=== PATIENT | female | born 1995 | race Two or more races ===

== ENCOUNTER 2017-04-30 07:56 | Emergency (ER) | payer SELFPAY ==
[~2017-04-30] VITALS: Ht 167.6 cm; Wt 104.3 kg
[2017-04-30 08:25] LABS: BASO # 0.1 x10^3/uL (0.0-0.2); BASO % 1 % (0-3); EOS % 0 % (0-3); HEMATOCRIT 39.3 % (36.0-47.0); HEMOGLOBIN 13.6 g/dL (12.0-15.5); LYMPH # 2.9 x10^3/uL (1.0-4.8); LYMPH % 23 % (24-48); MEAN CORPUSCULAR HEMOGLOBIN 29 pg (25-35); MEAN CORPUSCULAR HGB CONC 35 g/dL (31-37); MEAN CORPUSCULAR VOLUME 84 fL (79-100); MONO % 5 % (0-9); NEUT % 71 % (31-73); PLATELET COUNT 221 x10^3/uL (140-400); RED BLOOD COUNT 4.69 x10^6/uL (3.50-5.40); RED CELL DISTRIBUTION WIDTH 13.6 % (11.5-14.5); WHITE BLOOD COUNT 12.6 x10^3/uL (4.0-11.0)
[2017-04-30] MEDS ORDERED: IPRATRPIUM/ALBUTEROL 0.5/2.5MG 3 ML NEBU. NEB ONE (08:30)
[2017-04-30] MEDS ORDERED: LORazepam 1 MG TABLET PO ONE (08:30)
--- NOTE | 2017-04-30 08:35 | PHYS DOC ---
Past Medical History Past Medical History: No Pertinent History Alcohol Use: Occasionally Drug Use: Methamphetamine Adult General Chief Complaint Chief Complaint: SUBSTANCE ABUSE HPI HPI 21-year-old female presenting to the emergency department today after using methamphetamines for the first time. She reports feeling nauseous with shortness of breath. She also feels flushed. This all started about 8 hours ago when she used methamphetamines. She denies any chest pain. She does have mild epigastric abdominal pain that is intermittent and nonradiating. She denies fevers or chills at home. She denies cough. She denies being suicidal. She denies being homicidal. She denies attempting to overdose on methamphetamines. ( nursing note states pt concerned for OD, explaination being pt feels that she took too much.) not suicidal. Review of systems is negative for vomiting diarrhea or blood in stool or vomit. She denies chest pain. Positive for abdominal pain. All other review of systems is negative unless otherwise noted in history of present illness. ED course: 21-year-old female presenting to the emergency department after using methamphetamines. Vital signs afebrile with normal pulse. Otherwise unremarkable. Physical exam is unremarkable. Blood work EKG obtained. Chest x- ray obtained. Patient was given Ativan in the emergency department. Labs show decreased bicarbonate suggestive of a metabolic acidosis. Blood work sent for possible ingestions and negative. Osmolality normal. Aspirin and Tylenol negative. Patient is not uremic. No history of carbon monoxide exposure. Blood sugar within normal limits. On reexamination she was feeling better and subsequent discharged home. The patient was then discharged home in stable condition to follow up with their primary care physician over the next 2-3 days. They were to return if their symptoms worsened or if they were concerned for any reason. [id number] discharge instructions and return precautions were given. Patient's questions were answered to their satisfaction. Patient is comfortable plan. Review of Systems Review of Systems SEE ABOVE. Current Medications Current Medications Current Medications Medications (Trade) Dose Ordered Sig/Huseyin Start Time Stop Time Status Last Admin Dose Admin Albuterol/ Ipratropium (Duoneb) 3 ml 1X ONCE 04/30/17 08:30 04/30/17 08:30 DC Lorazepam (Ativan) 1 mg 1X ONCE 04/30/17 08:30 04/30/17 08:31 DC 04/30/17 08:32 1 MG Allergies Allergies Allergies Coded Allergies Type Severity Reaction Last Updated Verified No Known Drug Allergies 04/30/17 No Physical Exam Physical Exam Constitutional: Well developed, well nourished, no acute distress, non-toxic appearance. [] HENT: Normocephalic, atraumatic, bilateral external ears normal, oropharynx moist, no oral exudates, nose normal. [] Eyes: PERRLA, EOMI, conjunctiva normal, no discharge. [] Neck: Normal range of motion, no tenderness, supple, no stridor. [] Cardiovascular:Heart rate regular rhythm, no murmur [] Lungs & Thorax: Bilateral breath sounds clear to auscultation [] Abdomen: Soft nontender abdomen without rebound tenderness or guarding present. Negative McBurneys point. Negative Urena sign. No ecchymosis present. Skin: Warm, dry, no erythema, no rash. [] Back: No tenderness, no CVA tenderness. [] Extremities: No tenderness, no cyanosis, no clubbing, ROM intact, no edema. [] Neurologic: Alert and oriented X 3, normal motor function, normal sensory function, no focal deficits noted. [] Psychologic: Affect normal, judgement normal, mood normal. [] Current Patient Data Vital Signs Vital Signs Date Time Temp Pulse Resp B/P (MAP) Pulse Ox O2 Delivery O2 Flow Rate FiO2 04/30/17 08:34 77 18 142/60 (87) 98 Room Air 04/30/17 08:03 98.4 98.4 Lab Values Laboratory Tests Test 04/30/17 08:14 04/30/17 08:29 White Blood Count 12.6 x10^3/uL (4.0-11.0) H Red Blood Count 4.69 x10^6/uL (3.50-5.40) Hemoglobin 13.6 g/dL (12.0-15.5) Hematocrit 39.3 % (36.0-47.0) Mean Corpuscular Volume 84 fL (79-100) Mean Corpuscular Hemoglobin 29 pg (25-35) Mean Corpuscular Hemoglobin Concent 35 g/dL (31-37) Red Cell Distribution Width 13.6 % (11.5-14.5) Platelet Count 221 x10^3/uL (140-400) Neutrophils (%) (Auto) 71 % (31-73) Lymphocytes (%) (Auto) 23 % (24-48) L Monocytes (%) (Auto) 5 % (0-9) Eosinophils (%) (Auto) 0 % (0-3) Basophils (%) (Auto) 1 % (0-3) Neutrophils # (Auto) 9.0 x10^3uL (1.8-7.7) H Lymphocytes # (Auto) 2.9 x10^3/uL (1.0-4.8) Monocytes # (Auto) 0.6 x10^3/uL (0.0-1.1) Eosinophils # (Auto) 0.0 x10^3/uL (0.0-0.7) Basophils # (Auto) 0.1 x10^3/uL (0.0-0.2) Sodium Level 139 mmol/L (136-145) Potassium Level 3.5 mmol/L (3.5-5.1) Chloride Level 105 mmol/L (98-107) Carbon Dioxide Level 16 mmol/L (21-32) L Anion Gap 18 (6-14) H Blood Urea Nitrogen 6 mg/dL (7-20) L Creatinine 0.9 mg/dL (0.6-1.0) Estimated GFR (Cockcroft-Gault) 79.0 Glucose Level 144 mg/dL (70-99) H Serum Osmolality 291 mOsm/Kg (279-304) Calcium Level 10.2 mg/dL (8.5-10.1) H Total Bilirubin 0.7 mg/dL (0.2-1.0) Direct Bilirubin 0.2 mg/dL (0.0-0.2) Aspartate Amino Transferase (AST) 23 U/L (15-37) Alanine Aminotransferase (ALT) 17 U/L (14-59) Alkaline Phosphatase 79 U/L (46-116) Troponin I Quantitative < 0.017 ng/mL (0.000-0.055) Total Protein 8.9 g/dL (6.4-8.2) H Albumin 4.5 g/dL (3.4-5.0) Lipase 87 U/L (73-393) Salicylates Level < 2.8 mg/dL (2.8-20.0) L Salicylate Last Dose Date Unknown Salicylate Last Dose Time Unknown Acetaminophen Level < 2 mcg/ml (10-30) L Acetaminophen Last Dose Date Unknown Acetaminophen Last Dose Time Unknown Ethyl Alcohol Level < 10 mg/dL (0-10) Urine Collection Type Unknown Urine Color Yellow Urine Clarity Clear Urine pH 7.0 Urine Specific [place] <=1.005 Urine Protein Negative mg/dL (NEG-TRACE) Urine Glucose (UA) Negative mg/dL (NEG) Urine Ketones (Stick) 15 mg/dL (NEG) Urine Blood Negative (NEG) Urine Nitrite Negative (NEG) Urine Bilirubin Negative (NEG) Urine Urobilinogen Dipstick 0.2 mg/dL (0.2 mg/dL) Urine Leukocyte Esterase Negative (NEG) Urine RBC 0 /HPF (0-2) Urine WBC Occ /HPF (0-4) Urine Squamous Epithelial Cells Few /LPF Urine Bacteria 0 /HPF (0-FEW) Urine Mucus Slight /LPF Urine Opiates Screen Neg (NEG) Urine Methadone Screen Neg (NEG) Urine Barbiturates Neg (NEG) Urine Phencyclidine Screen Neg (NEG) Urine Amphetamine/Methamphetamine Pos (NEG) Urine Benzodiazepines Screen Neg (NEG) Urine Cocaine Screen Neg (NEG) Urine Cannabinoids Screen Pos (NEG) Urine Ethyl Alcohol Neg (NEG) Laboratory Tests 04/30/17 08:14 Laboratory Tests 04/30/17 08:14 EKG EKG [] Radiology/Procedures Radiology/Procedures [] Course & Med Decision Making Course & Med Decision Making Pertinent Labs and Imaging studies reviewed. (See chart for details) [] Dragon Disclaimer Dragon Disclaimer This electronic medical record was generated, in whole or in part, using a voice recognition dictation system. Departure Departure Impression: Primary Impression: Methamphetamine use Additional Impressions: Shortness of breath Abdominal pain Nausea Disposition: 01 HOME, SELF-CARE Condition: STABLE Referrals: BOLIVAR MARTINEZ MD Patient Instructions: Substance Abuse-Brief Additional Instructions: Thank you for allowing us to participate in your care today. Followup with your primary care physician in 3 days if your symptoms do not improve. Call your Primary Doctor tomorrow and inform them of your visit today. If you do not have a primary care provider you can ask for a list of our primary care providers. Return to the emergency department you have any new or concerning findings. This should be evaluated by the primary care physician and any necessary consulting services for continued management within a few days after discharge. Return to emergency room if you have any new or concerning symptoms including but not limited to fever, chills, nausea, vomiting, intractable pain, any new rashes, chest pain, shortness of air, uncontrolled bleeding, difficulty breathing, and/or vision loss. Problem Qualifiers BENITEZ ROMERO MD Apr 30, 2017 08:35
[2017-04-30 08:36] LABS: CALCIUM 10.2 mg/dL (8.5-10.1); CREATININE 0.9 mg/dL (0.6-1.0); POTASSIUM 3.5 mmol/L (3.5-5.1)
--- NOTE | 2017-04-30 08:45 | EKG ---
[facility] [address] [place] [address] Test Date: 2017-04-30 Test Time: 08:22:46 Pat Name: ROVERTO TERESA Department: Room: Gender: F Tag Stringer: : 1995 Requested By: BENITEZ ROMERO Order Number: [id number] Reading MD: Measurements Intervals [place] Rate: 71 P: 49 SD: 158 QRS: 24 QRSD: 104 T: 14 QT: 392 QTc: 431 Interpretive Statements SINUS RHYTHM QRS(T) CONTOUR ABNORMALITY CONSIDER ANTEROLATERAL MYOCARDIAL DAMAGE CANNOT RULE OUT INFERIOR MYOCARDIAL DAMAGE RI6.01 Unconfirmed report No previous ECG available for comparison
--- NOTE | 2017-04-30 09:15 | RAD ---
AP PORTABLE CHEST Clinical Indication: short of breath. Comparison: None. Findings: The cardiomediastinal silhouette is normal. Lungs are clear. There is no pneumothorax. No pleural effusion is appreciated. There is no acute bone abnormality. IMPRESSION: No acute cardiopulmonary process.
[2017-04-30 09:45] LABS: BARBITURATES NEG (NEG); BENZODIAZEPINES NEG (NEG); CANNABINOIDS POS (NEG); COCAINE NEG (NEG); METHADONE NEG (NEG); OPIATES NEG (NEG); PHENCYCLIDINE NEG (NEG)
[2017-04-30 09:51] LABS: ALBUMIN 4.5 g/dL (3.4-5.0); DIRECT BILIRUBIN 0.2 mg/dL (0.0-0.2); TOTAL BILIRUBIN 0.7 mg/dL (0.2-1.0); TOTAL PROTEIN 8.9 g/dL (6.4-8.2)
[2017-04-30 10:01] LABS: ETHANOL < 10 mg/dL (0-10)
[2017-04-30 10:06] LABS: BILIRUBIN,URINE NEGATIVE (NEG); GLUCOSE,URINE NEGATIVE (NEG); NITRITE,URINE NEGATIVE (NEG); PROTEIN,URINE NEGATIVE (NEG-TRACE); UROBILINOGEN,URINE 0.2 mg/dL (0.2 mg/dL)
[2017-04-30 10:07] LABS: BACTERIA,URINE 0 /HPF (0-FEW); RBC,URINE 0 /HPF (0-2); SQUAMOUS EPITHELIAL CELL,UR FEW /LPF; WBC,URINE OCC /HPF (0-4)
[2017-04-30 10:53] VITALS: BP 117/80
== END 2017-04-30 12:07 | disposition home or self-care (01) ==
LOC: ER 07:56
DX: F15.90 Other stimulant use, unspecified, uncomplicated (principal); R06.02 Shortness of breath; R11.0 Nausea
CPT/HCPCS: 36415; 71010; 80048; 80076; 80305; 80329; 81001; 83690; 83930; 84484; 85027; 93005; G0480; G0481; 99285-25